=== PATIENT | female | born 1995 | race Caucasian/White ===

== ENCOUNTER 2024-06-18 02:21 | Emergency (ER) | payer MEDICAID, SELFPAY ==
[2024-06-18 02:29] VITALS: BP 119/76; PULSE 111; RESP 16; TEMP 36.6; O2SAT 100; BMI 26.4
[2024-06-18 02:42] LABS: MANUAL DIFF FLAG NO
[2024-06-18 02:43] LABS: Basophils Percent Auto 0.2 % (0-2); Eosinophils Absolute Auto 0.1 X10*3/uL (0.0-0.4); Eosinophils Percent Auto 0.6 % (0-4); Hematocrit 38.5 % (37.0-47.0); Hemoglobin 13.2 g/dl (12.0-16.0); Imm Gran Abs Auto 0.02 X10*3/uL (0.00-0.03); Imm Gran Pct Auto 0.2 % (0.0-0.4); Lymphocytes Absolute Auto 0.7 X10*3/uL (1.2-4.9); Lymphocytes Percent Auto 6.5 % (20-40); Mean Corpuscular HGB Conc 34.3 g/dl (31.0-35.0); Mean Corpuscular Hemoglobin 28.3 pg (27.0-33.0); Mean Corpuscular Volume 82.6 fL (80.0-98.0); Mean Platelet Volume 9.2 fL (9.4-12.3); Monocytes Absolute Auto 0.6 X10*3/uL (0.1-1.2); Monocytes Percent Auto 5.4 % (2-11); Neutrophils Percent Auto 87.1 % (45-73); Platelet Count 297 X10*3/uL (160-400); Red Blood Count 4.66 X10*6/uL (4.20-5.50); White Blood Count 10.3 X10*3/uL (4.8-10.8)
[2024-06-18 03:02] LABS: Alanine Aminotransferase 17 U/L (0-31); Albumin Level 4.7 g/dL (3.5-5.0); Anion Gap 15 (12-20); Aspartate Amino Transferase 25 U/L (5-31); Bilirubin Total 0.4 mg/dL (0.0-1.0); Blood Urea Nitrogen 13 mg/dL (9-16); Calcium 9.6 mg/dL (8.4-10.2); Carbon Dioxide 22 mmol/L (22-29); Chloride 103 mmol/L (96-108); Creatinine Clr Calc Pharmacy 83.8; Estimated Glomerular Filt Rate > 60; Glucose Random 117 mg/dL (60-115); Lipase 20 U/L (8-78); Potassium 3.4 mmol/L (3.3-5.1); Sodium 137 mmol/L (135-145); Total Protein 7.9 g/dL (6.5-8.0)
[2024-06-18] MEDS: ondansetron HCL 4 MG/2 ML VIAL IVPUSH (03:10)
[2024-06-18] MEDS: Ketorolac Tromethamine 15 MG/ML VIAL IVPUSH (03:11)
--- NOTE | 2024-06-18 03:11 | ED.NAVMDI ---
HPI - Nausea/Vomiting/Diarrhea General Chief complaint: Nausea/Vomiting/Diarrhea Stated complaint: Vomiting, weakness Time Seen by Provider: 06/18/24 02:52 Source: patient Mode of arrival: ambulatory Limitations: no limitations History of Present Illness ED Provider: ADY TELLEZ Narrative: 29 yo female with no sig PMH ate a burrito on Monday night around 4pm then later on developed diarrhea non bloody and abd cramps. Her partner had diarrhea too. She has had diarrhea since then - denies travel/abx exposure. She then notes she started to vomit tonight. No fevers, she notes she feels ill. Feels her HR has been high. MD elicited complaint: nausea, vomiting, diarrhea and abdominal pain Onset (ago): day(s) (Monday) Description of vomiting: food contents and watery Description of diarrhea: watery Associated nausea: Yes Associated abdominal pain: Yes Location of pain: diffuse Radiation: diffuse Pain consistency: intermittent Severity: moderate Quality: cramping Exacerbating factors: eating and movement Relieving factors: none Context: possible food poisoning Associated symptoms: loss of appetite, malaise, nausea/vomiting and weakness Related Data Previous Rx's ?Medication ?Instructions ?Recorded ondansetron 4 mg disintegrating 4 mg PO Q8H PRN nausea and 06/18/24 tablet vomiting #20 tabs Allergies Allergy/AdvReac Type Severity Reaction Status Date / Time amoxicillin Allergy Rash Verified 06/18/24 02:32 Sulfa (Sulfonamide Allergy Rash Verified 06/18/24 02:32 Antibiotics) Review of Systems Review of Systems: Constitutional : No Weight loss, No Fever, No Chills ENT/Mouth : No sore throat, No Rhinorrhea Eyes: No Swelling, No Redness Cardiovascular : No Chest Pain, No SOB, NoEdema Respiratory : No Cough, No Sputum, No Wheezing Gastrointestinal : Positive Nausea, Positive Vomiting, positive Diarrhea, positive abdominal Pain, No Hematochezia, No Melena Genitourinary : No Dysuria, No Urinary Frequency, No Hematuria, No Urgency Musculoskeletal : No joint pain, No Myalgias, No Joint Swelling Skin : No Skin Lesions, No rash Neuro : No Weakness, No Numbness, No Dizziness, No Headache Psych : No Anxiety/Panic, No Depression Heme/Lymph: No Bruising, No Lymphadenopathy Endocrine : No Polyuria, No Polydipsia All other systems reviewed and are negative. Gastrointestinal: Gastrointestinal: Reports nausea PMFSH Past Medical History Attestation statement: The following information was validated with the patient. Source: old records reviewed Medical History (Updated 06/18/24 @ 03:19 by Keli Matt DO) No pertinent past medical history Social History Social History (Updated 06/18/24 @ 03:12 by Keli Matt DO) Patient Tobacco Use Status: Never used Tobacco Do you have a plan to hurt others: No Plan Physical Exam Vital Signs: Vital Signs: Last Vital Signs Temp 97.9 F 06/18/24 04:00 Pulse 89 06/18/24 04:00 Resp 18 06/18/24 04:00 BP 107/62 06/18/24 04:00 Pulse Ox 100 06/18/24 04:00 O2 Del Method Room Air 06/18/24 04:00 BMI result Body Mass Index 26.4 Appearance: Alert. Oriented X3. No acute distress. Eyes: Pupils equal, round and reactive to light. ENT: Pharynx normal. Neck: Normal inspection. Neck supple. CVS: Normal heart rate and rhythm. Pulses normal. Respiratory: No respiratory distress. Breath sounds normal. Abdomen: Soft and mild epigastric ttp no rebound or guarding Skin: Skin warm and dry. Normal skin color. Normal skin turgor. Extremities: No lower extremity edema. No calf ttp Neuro: Oriented X 3. No motor deficit. No sensory deficit. Course Course Course Narrative: urine in contaminated no urinary symptoms repeat next week Reevaluation(s) Reevaluation #1: asked me to check L breast for possible lump that fluctuates with her cycle - Rachel RN presents I did not feel mass. She has had neg US before. Discussed her to follow up with PCP Medications Administered Discontinued Medications Generic Name Dose Route Start Last Admin Trade Name Freq PRN Reason Stop Dose Admin Famotidine 20 mg 06/18/24 02:53 06/18/24 03:12 Famotidine/Pf 20 Mg/2 Ml Vial IVPUSH 06/18/24 02:54 20 mg ONCE ONE Administration Lactated Ringer's 1,000 mls @ 999 mls/hr 06/18/24 02:53 06/18/24 04:26 Lr IV 06/18/24 03:53 Infused .Q1H1M ONE Infusion Ketorolac Tromethamine 15 mg 06/18/24 02:53 06/18/24 03:11 Ketorolac Tromethamine 15 Mg/Ml Vial IVPUSH 06/18/24 02:54 15 mg ONCE ONE Administration Ondansetron HCl 4 mg 06/18/24 02:53 06/18/24 03:10 Ondansetron Hcl 4 Mg/2 Ml Vial IVPUSH 06/18/24 02:54 4 mg ONCE ONE Administration Medical Decision Making Medical Decision Making [facility] Narrative: 29 yo female not toxic no sig PMH here with c/o diarrhea and cramps since eating a burrito on Monday now with n/v her pain is not localized she has no fevers, no bloody stools and she is immunocompetent. At this time basic labs, IVF, toradol/zofran. Reassess and PO challenge. No localized pain to suggest appy or GB pathology. Differential Diagnosis Differential Diagnoses: The differential diagnosis associated with the presentation includes dehydration, viral syndrome, food toxicity Admission/Observation Consideration of admission/observation: Escalation of care including admission/observation considered tolerating PO feels much better stable for DC Lab Data [facility] Lab Attestation statement: I reviewed the patient's lab results. 06/18/24 02:37 06/18/24 02:37 Labs: Lab Results 06/18/24 06/18/24 Range/Units 02:37 04:19 WBC 10.3 (4.8-10.8) X10*3/uL RBC 4.66 (4.20-5.50) X10*6/uL Hgb 13.2 (12.0-16.0) g/dl Hct 38.5 (37.0-47.0) % MCV 82.6 (80.0-98.0) fL MCH 28.3 (27.0-33.0) pg MCHC 34.3 (31.0-35.0) g/dl RDW 13.0 (11.0-16.0) % Plt Count 297 (160-400) X10*3/uL MPV 9.2 L (9.4-12.3) fL Immature Gran % (Auto) 0.2 (0.0-0.4) % Neut % (Auto) 87.1 H (45-73) % Lymph % (Auto) 6.5 L (20-40) % [place] % (Auto) 5.4 (2-11) % Eos % (Auto) 0.6 (0-4) % Baso % (Auto) 0.2 (0-2) % Lymph # (Auto) 0.7 L (1.2-4.9) X10*3/uL [place] # (Auto) 0.6 (0.1-1.2) X10*3/uL Eos # (Auto) 0.1 (0.0-0.4) X10*3/uL Baso # (Auto) 0.0 (0.0-0.2) X10*3/uL Abs Immat Gran (auto) 0.02 (0.00-0.03) X10*3/uL Absolute Neuts (auto) 9.0 H (2.0-8.3) x10*3/uL Absolute Nucleated RBC 0.000 (0.0-0.012) X10*3/uL Nucleated RBC % (auto) 0.0 (0.0-0.2) /100WBC Sodium 137 (135-145) mmol/L Potassium 3.4 (3.3-5.1) mmol/L Chloride 103 (96-108) mmol/L Carbon Dioxide 22 (22-29) mmol/L Anion Gap 15 (12-20) BUN 13 (9-16) mg/dL Creatinine 0.86 (0.5-1.4) mg/dL Estim Creat Clear Calc 83.8 Estimated GFR > 60 Random Glucose 117 H (60-115) mg/dL Calcium 9.6 (8.4-10.2) mg/dL Total Bilirubin 0.4 (0.0-1.0) mg/dL AST 25 (5-31) U/L ALT 17 (0-31) U/L Alkaline Phosphatase 95 (39-117) U/L Total Protein 7.9 (6.5-8.0) g/dL Albumin 4.7 (3.5-5.0) g/dL Lipase 20 (8-78) U/L Urine Color Dark Yellow Urine Appearance Cloudy Urine pH 5.5 (5.0-9.0) Ur Specific [place] >= 1.030 H (1.005-1.025) Urine Protein 30 (1+) H (Neg-Trace) mg/dL Urine Glucose (UA) Negative (Negative) mg/dL Urine Ketones 40 (Negative) mg/dL Urine Blood Moderate (2+) H (Negative) Urine Nitrite Negative (Negative) Ur Leukocyte Esterase Trace H (Negative) Urine RBC >20 H (0-2) /HPF Urine WBC 11-20 H (0-5) /HPF Ur Squamous Epith Cells 11-20 (0-2) /HPF Urine Bacteria 1+ (None Seen) Hyaline Casts 0-2 (0-2) /LPF Urine Test NEGATIVE (NEGATIVE) Independent Historian Clinical information obtained from an independent historian. History obtained from or confirmed by: Spouse Prescription Management I considered prescription management with: Other Discharge Plan Discharge Clinical Impression: Acute diarrhea, Nausea & vomiting Patient Disposition: Home, Self-Care Instructions: Acute Nausea and Vomiting (ED), Acute Diarrhea (ED) Additional Instructions: stay hydrated, labs reassuring return for any worsening symptoms or concerns bland diet for 24 to 48 hours advance slowly some blood in urine repeat next week to make sure it is resolved Prescriptions: New ondansetron 4 mg tablet,disintegrating 4 mg PO Q8H PRN (Reason: nausea and vomiting) Qty: 20 0RF Stand Alone Forms: Work/School Release
[2024-06-18] MEDS: Famotidine/PF 20 MG/2 ML VIAL IVPUSH (03:12)
[2024-06-18 03:13] LABS: Alkaline Phosphatase 95 U/L (39-117)
[2024-06-18] MEDS: Lactated Ringers 1,000 ML 999 ML IV (03:13)
--- NOTE | 2024-06-18 03:51 | PC.NURSE ---
Pt tolerating PO well without issue or concern. OOB to bathroom, walks with a steady gait.
[2024-06-18 04:00] VITALS: BP 107/62; PULSE 89; RESP 18; TEMP 36.6; O2SAT 100
[2024-06-18 04:28] LABS: UPreg QC Valid YES; Urine Pregnancy NEGATIVE (NEGATIVE)
[2024-06-18 04:30] LABS: Appearance Urine Cloudy; Color Urine Dark Yellow; Glucose Urine UA Negative (Negative); Leukocyte Esterase Urine Trace (Negative); Nitrite Urine Negative (Negative); PH 5.5 (5.0-9.0); Specific Gravity - Urine >= 1.030 (1.005-1.025); UMIC TRIGGER UACC YES; Urine Blood Moderate (2+) (Negative); Urine Ketones 40 mg/dL (Negative); Urine Protein 30 (1+) mg/dL (Neg-Trace)
[2024-06-18 04:33] LABS: Bacteria Urine 1+ (None Seen); Hyaline Casts Urine 0-2 /LPF (0-2); RBC Urine >20 /HPF (0-2); UACC Culture Trigger YES
--- OUTSIDE RECORDS SUMMARY | 2024-06-18 04:45 | XMS_ITS | Continuity of Care Document ---
Author Organization [facility] ter Address [address] [place] [id number]- Care Team Providers Care Traffic Law Attorney Name Role Phone Omar Vargas MD Primary Care Physician [phone] [place] [facility] [place] - 03/05/[address] [id number] Discharge Disposition: A-D/C Home Attending Physician: Omar Vargas MD Admitting Physician: Omar Vargas MD Referring Physician: Omar Vargas MD Allergies, Adverse Reactions, Alerts Substance Reaction Severity Status amoxicillin 1 rash on back Active sulfADIAZINE hives Active sulfa drugs hives Active Latex rash Unknown Active 1rash Medications acetaminophen 325 mg oral capsule 2 capsule = 650 mg, By Mouth, Every 4 hours, PRN as needed for pain, # 50 capsule, 0 Refills, Maintenance, 03/05/21 6:39:00 EDT, Capsule, [facility] #[id number], Partial fill upon patient request if the prescription is for a schedule II opioid dr... Start Date: 03/05/21 Status: Ordered docusate sodium 100 mg oral tablet 1 tablet = 100 mg, By Mouth, 2 times a day, PRN for constipation, # 60 tablet, 0 Refills, Maintenance, 03/05/21 6:39:00 EDT, Tablet, [facility] #[id number], Partial fill upon patient request if the prescription is for a schedule II opioid drug.,... Start Date: 03/05/21 Status: Ordered ibuprofen 600 mg oral tablet 600 mg, 1, tablet, By Mouth, Every 8 hours, # 30 tablet, Refills 0, Tot. Refills 0, Maintenance, 05/05/20 16:53:00 EDT, Route to Pharmacy Electronically, [facility] #[id number], 154.94, cm, 05/09/19 9:37:00 EDT, Height, 56.7, kg, 05/09/19 9:37:00... Start Date: 05/05/20 Status: Ordered ibuprofen 800 mg oral tablet 800 mg, 1, tablet, By Mouth, Every 8 hours, # 50 tablet, Refills 0, Tot. Refills 0, Maintenance, 03/05/21 6:39:00 EDT, Route to Pharmacy Electronically, [facility] #[id number], Partial fill uponpatient request if the prescription is for a schedu... Start Date: 03/05/21 Status: Ordered oxyCODONE 5 mg oral tablet 5 mg, 1, tablet, By Mouth, Every 6 hours, PRN, # 7 tablet, Refills 0, Tot. Refills 0, Maintenance, as needed for pain, 03/05/21 6:40:00 EDT, Route to Pharmacy Electronically, [facility] #[id number], 156, cm, 03/05/21 1:17:00 EDT, Height, 80.7, kg... Start Date: 03/05/21 Status: Ordered OxyCODONE IR Tablet 5 mg, Tablet, By Mouth, Every 3 hours, PRN for Pain , Severe, (7-10), Routine, 03/03/21 5:39:00 EDT Start Date: 03/03/21 Stop Date: 03/05/21 Status: Discontinued Multivitamins with Vitamin B Complex, Vitamin C, Minerals and L- Methylfolate oral capsule 1 capsule, By Mouth, Daily, # 90 capsule, 0 Refills, Maintenance, 07/22/20 0:07:00 EST, Capsule, [facility] #[id number], Partial fill upon patient request if the prescription is for a schedule II opioid drug., 1 capsule By Mouth Daily,x90 days, 1... Start Date: 07/22/20 Stop Date: 10/20/20 Status: Ordered simethicone 80 mg oral tablet 1 tablet = 80 mg, By Mouth, 3 times a day after meals, PRN Gas, # 48 tablet, 0 Refills, Maintenance, 03/05/21 6:39:00 EDT, [facility][id number], Partial fill upon patient request if the prescription is for a schedule II opioid drug., 156, cm, 0... Start Date: 03/05/21 Status: Ordered Vitamin D3 400 intl units oral capsule 1 capsule = 400 International_Units, By Mouth, Daily, # 30 capsule, 0 Refills, Maintenance, 03/30/19 14:50:00 EDT Start Date: 03/30/19 Status: Ordered Problem List Condition Effective Dates Status Health Status Inform ant Chlamydia(Confirmed) Active Depressive disorder(Confirmed) Active Kidney stones(Confirmed) Active Pelviectasis(Confirmed) Active Procedures Procedure Date Related Diagnosis Body Site Status delivery only; 03/02/21 C ompleted Vital Signs Most recent to oldest [Reference Range]: 1 2 3 Height 156 cm (03/05/21 9:38 AM) 156 cm (03/05/21 12:00 AM) 156 cm (03/04/21 9:50 AM) Weight 80.7 kg (03/01/21 6:14 AM) 80.7 kg (03/01/21 4:53 AM) 80.7 kg (03/01/21 1:22 AM) Oxygen Saturation [94-100 %] 99 % (03/05/21 12:00 AM) 100 % (03/04/21 12:10 AM) 93 % *L* (03/02/21 7:00 AM) Pulse Rate [55-90 bpm] 83 bpm (03/05/21 9:38 AM) 81 bpm (03/05/21 12:00 AM) 80 bpm (03/04/21 3:55 PM) Body Mass Index [18.5-24.99] 33.16 *>HHI* (03/01/21 4:53 AM) Blood Pressure [90-138/55-84 mm Hg] 141/81mm Hg *H* (03/05/21 9:38 AM) 118/77mm Hg (03/05/21 12:00 AM) 130/75mm Hg (03/04/21 3:55 PM) Respiratory Rate [16-30 br/min] 18 br/min (03/05/21 9:38 AM) 18 br/min (03/05/21 12:00 AM) 17 br/min (03/04/21 11:27 PM) Temperature [96.8-100.4 DegF] 97.9 DegF (03/05/21 9:38 AM) 98.1 DegF (03/05/21 12:00 AM) 98.5 DegF (03/04/21 3:55 PM) Mode of Delivery (Oxygen) Room air (03/05/21 12:00 AM) Room air (03/04/21 12:10 AM) Room air (03/02/21 6:00 AM) Blood pressure sites Arm, left (03/05/21 9:38 AM) Arm, left (03/04/21 3:55 PM) Arm, right (03/03/21 5:44 PM) Temperature Route Oral (03/05/21 9:38 AM) Oral (03/05/21 12:00 AM) Oral (03/04/21 3:55 PM) Dry Weight 80.7 kg (03/01/21 4:53 AM) 80.7 kg (03/01/21 1:22 AM) Weight Obtained Via Standing scale (03/01/21 1:22 AM) Dry Weight Obtained Via Standing scale (03/01/21 1:22 AM) Social History Social History Type Response Smoking Status Never smoker entered on: 10/04/17 Sex
--- OUTSIDE RECORDS SUMMARY | 2024-06-18 04:45 | XMS_ITS | Continuity of Care Document ---
Author Organization [facility] ter Address [address] [place] [id number]- Care Team Providers Care Technical Services Rep Name Role Phone Omar Vargas MD Primary Care Physician [phone] [place] [facility] [place] 02/24/21 - 02/24/[address] [id number] Discharge Disposition: A-D/C Home Attending Physician: Omar Vargas MD Admitting Physician: Omar Vargas MD Referring Physician: Omar Vargas MD Allergies, Adverse Reactions, Alerts Substance Reaction Severity Status amoxicillin 1 rash on back Active sulfADIAZINE hives Active sulfa drugs hives Active Latex rash Unknown Active 1rash Medications ibuprofen 600 mg oral tablet 600 mg, 1, tablet, By Mouth, Every 8 hours, # 30 tablet, Refills 0, Tot. Refills 0, Maintenance, 05/05/20 16:53:00 EDT, Route to Pharmacy Electronically, [facility] #[id number], 154.94, cm, 05/09/19 9:37:00 EDT, Height, 56.7, kg, 05/09/19 9:37:00... Start Date: 05/05/20 Status: Ordered ondansetron 4 mg oral disintegrating strip 1 each = 4 mg, By Mouth, Every 8 hours, PRN Nausea & Vomiting, # 12 strip(s), 0 Refills, Maintenance, 03/30/19 13:38:18 EDT Start Date: 03/30/19 Status: Ordered Multivitamins with Vitamin B Complex, Vitamin C, Minerals and L- Methylfolate oral capsule 1 capsule, By Mouth, Daily, # 90 capsule, 0 Refills, Maintenance, 07/22/20 0:07:00 EST, Capsule, [facility] #[id number], Partial fill upon patient request if the prescription is for a schedule II opioid drug., 1 capsule By Mouth Daily,x90 days, 1... Start Date: 07/22/20 Stop Date: 10/20/20 Status: Ordered Vitamin D3 400 intl units oral capsule 1 capsule = 400 International_Units, By Mouth, Daily, # 30 capsule, 0 Refills, Maintenance, 03/30/19 14:50:00 EDT Start Date: 03/30/19 Status: Ordered Problem List Condition Effective Dates Status Health Status Inform ant Depressive disorder(Confirmed) Active H/O: depression(Confirmed) 1 02/24/21 Active Kidney stones(Confirmed) Active Pelviectasis(Confirmed) Active 1Problem added by Discern Expert Vital Signs Most recent to oldest [Reference Range]: 1 Weight 79.2 kg (02/24/21 1:32 PM) Oxygen Saturation [94-100 %] 99 % (02/24/21 2:10 PM) Pulse Rate [55-90 bpm] 74 bpm (02/24/21 2:10 PM) Blood Pressure [90-138/55-84 mm Hg] 112/ 64mm Hg (02/24/21 2:10 PM) Respiratory Rate [16-30 br/min] 18 br/mi n (02/24/21 2:10 PM) Temperature [96.8-100.4 DegF] 98.5 DegF (02/24/21 2:10 PM) Mode of Delivery (Oxygen) Room air (02/24/21 2:10 PM) Blood pressure sites Arm, right (02/24/21 2:10 PM) Temperature Route Oral (02/24/21 2:10 PM) Dry Weight 79.2 kg (02/24/21 1:32 PM) Weight Obtained Via Standing scale (02/24/21 1:32 PM) Dry Weight Obtained Via Standing scale (02/24/21 1:32 PM) Social History Social History Type Response Smoking Status Never smoker entered on: 10/04/17 Sex
--- OUTSIDE RECORDS SUMMARY | 2024-06-18 04:45 | XMS_ITS | Continuity of Care Document ---
Author Organization [facility] Address [address] [place] [address]- Care Team Providers Care Survey Supervisor Name Role Phone Not on Staff, PCP Primary Care Physician Unavail able Encounter [facility] Date(s): 09/23/20 - 10/23/[facility] [address] [place] [id number] Attending Physician: Ольга Pope Admitting Physician: Admtr, Ольга Referring Physician: Admtr, Ar8 Allergies, Adverse Reactions, Alerts Substance Reaction Severity Status amoxicillin 1 rash on back Active sulfADIAZINE hives Active sulfa drugs hives Active Latex rash Unknown Active 1rash Medications ibuprofen 600 mg oral tablet 600 mg, 1, tablet, By Mouth, Every 8 hours, # 30 tablet, Refills 0, Tot. Refills 0, Maintenance, 05/05/20 16:53:00 EDT, Route to Pharmacy Electronically, [facility] #[id number], 154.94, cm, 05/09/19 9:37:00 EDT, Height, 56.7, [...] 0 Refills, Maintenance, 07/22/20 0:07:00 EST, Capsule, [facility] #[id number], Partial fill upon patient request if the prescription is for a schedule II opioid drug., 1 capsule By Mouth Daily,x90 days, 1... Start Date: 07/22/20 Stop Date: 10/20/20 Status: Ordered pyridoxine 25 mg oral tablet 0.5 tablet = 12.5 mg, By Mouth, 3 times a day, PRN Nausea & Vomiting, for 14 days, # 30 tablet,8 Refills, Acute 11/25/20 0:07:00 EDT, 07/22/20 0:07:00 EST, Tablet, [facility] #[id number], Partial fill upon patient request if the prescription is... Start Date: 07/22/20 Stop Date: 11/25/20 Status: Ordered Vitamin D3 400 intl units oral capsule 1 capsule = 400 International_Units, By Mouth, Daily, # 30 capsule, 0 Refills, Maintenance, 03/30/19 14:50:00 EDT Start Date: 03/30/19 Status: Ordered Social History Social History Type Response Smoking Status Never smoker entered on: 10/04/17 Sex
--- OUTSIDE RECORDS SUMMARY | 2024-06-18 04:45 | XMS_ITS | Continuity of Care Document ---
Author Organization [facility] ter Address [address] [place] [id number]- Care Team Providers Care Electronics Utility Worker Name Role Phone Omar Vargas MD Primary Care Physician Encounter [facility] [place] Date(s): 02/28/21 - 02/28/[address] [id number] Discharge Disposition: A-D/C Home Attending Physician: Omar [...] 05/05/20 16:53:00 EDT, Route to Pharmacy Electronically, [facility] #[id number], 154.94, cm, 05/09/19 9:37:00 EDT, Height, 56.7, [...] 0 Refills, Maintenance, 07/22/20 0:07:00 EST, Capsule, [facility] #[id number], Partial fill upon patient request if the [...] Inform ant Chlamydia(Confirmed) Active Depressive disorder(Confirmed) Active H/O: depression(Confirmed) 1 02/24/21 Active Kidney stones(Confirmed) Active Pelviectasis(Confirmed) Active 1Problem added by Discern Expert Vital Signs Most recent to oldest [Reference Range]: 1 Weight 80.4 kg (02/28/21 8:19 AM) Pulse Rate [55-90 bpm] 86 bpm (02/28/21 8:30 AM) Blood Pressure [90-138/55-84 mm Hg] 105/ 73mm Hg (02/28/21 8:30 AM) Respiratory Rate [16-30 br/min] 18 br/mi n (02/28/21 8:30 AM) Temperature [96.8-100.4 DegF] 98.2 DegF (02/28/21 8:30 AM) Blood pressure sites Arm, right (02/28/21 8:30 AM) Temperature Route Oral (02/28/21 8:30 AM) Dry Weight 80.4 kg (02/28/21 8:19 AM) Weight Obtained Via Standing scale (02/28/21 8:19 AM) Dry Weight Obtained Via Standing scale (02/28/21 8:19 AM) Social History Social History Type Response Smoking Status Never smoker entered on: 10/04/17 Sex
--- OUTSIDE RECORDS SUMMARY | 2024-06-18 04:45 | XMS_ITS | Continuity of Care Document ---
Author Organization [facility] Address [address] [place] [address]- Care Team Providers Care Military Technology Specialist Name Role Phone Not on Staff, PCP Primary Care Physician Unavail able Encounter [facility] Date(s): 04/29/24 - 04/29/[address] [address]- Encounter Diagnosis Ingrown toenail(Final) - 04/29/24 Discharge Disposition: A-D/C Home Attending Physician: Leslie LEDESMA, Mihir Valverde Admitting Physician: Leslie LEDESMA, Mihir Valverde Referring Physician: Not on Staff, Referring MD Allergies, Adverse Reactions, Alerts Substance Reaction Severity Status sulfa drugs hives Active Latex rash Unknown Active amoxicillin 1, 2 Tolerated ceftriaxon e and cefazolin 2018 rash on back Active sulfADIAZINE hives Active 1Tolerated ceftriaxon and cefazolin 2018 2rash Medications ZyrTEC 10 mg oral tablet 1 tablet = 10 mg, By Mouth, Daily, PRN for allergy symptoms, you may take an additional tablet at nighttime if you continue to have itching, # 14 tablet, 0 Refills, Maintenance, 03/26/23 7:32:00 EDT,Tablet, [facility] #[id number], Partial fill u... Start Date: 03/26/23 Stop Date: 04/02/23 Status: Ordered Problem List Condition Confirmation Course Effective Dates Status Health St atus Informant Chlamydia Confirmed Active Depressive disorder Confirmed Active Kidney stones Confirmed Active Pelviectasis Confirmed Active Vital Signs Most recent to oldest [Reference Range]: 1 Height 152 cm (04/29/24 11:22 AM) Weight 64.5 kg (04/29/24 11:22 AM) Oxygen Saturation [94-100 %] 96 % (04/29/24 11:21 AM) Pulse Rate [55-90 bpm] 100 bpm *H* (04/29/24 11:21 AM) Blood Pressure [90-138/55-84 mm Hg] 110/ 62mm Hg (04/29/24 11:22 AM) Respiratory Rate [16-30 br/min] 16 br/mi n (04/29/24 11:22 AM) Temperature [96.8-100.4 DegF] 97.9 DegF (04/29/24 11:22 AM) Mode of Delivery (Oxygen) Room air (04/29/24 11:21 AM) Blood pressure sites Arm, left (04/29/24 11:22 AM) Dry Weight 64.5 kg (04/29/24 11:22 AM) Social History Social History Type Response Smoking Status Never smoker entered on: 10/04/17 Sex Note * Cris Rubio: PERFORM Event Display: Patient Education Leaflets Authored Date: [id number] Ingrown Toenail, Not Infected (Home Treatment) ?? [id number] Ingrown Toenail, Not Infected (Home Treatment) An ingrown toenail occurs when the nail grows sideways into the skin next to the nail. This can cause pain, especially when wearing tight shoes. It can also lead to an infection with redness, swelling, and pus drainage. Most people respond to the treatments described here. But sometimes surgery is needed. The big toe is most often affected.?? The most common cause of an ingrown toenail is trimming your nails wrong. Don't trim the nails too close to the skin and try to round the nail too tightly around the shape of the toe. When you do this, the nail can grow into the skin of your toe.??It's safer to trim the nail ending in a straight line rather than a curve. An ingrown toenail may seem more like an inconvenience than a serious problem. If you have diabetes, poor circulation, or a history of foot ulcers, get medical care at the first sign of an ingrown toenail. It can lead to serious complications. Home care These guidelines will help you care for your toenail at home: ??? Soak the painful toe in warm water 3 to 4 times each day, for 10 to 20 minutes each time. Adding Epsom salt may be advised by your healthcare provider. Then keep it dry. ??? If there's redness or swelling around the toenail, apply anantibiotic ointment 3 times a day. ??? Put a small piece of rolled-up cotton under the corner of the nail. This helps the nail to grow outward, away from the cuticle. ??? Wear shoes that don???t put pressure on the toes, such as a sandal or open shoe. Closed shoes should be big enough in the toes so that there is no pressure on the painful toe. ??? You may use acetaminophen or ibuprofen for pain,unless another pain medicine was prescribed. Talk with your provider before using these medicines if you have chronic liver or kidney disease. Also talk with your provider if you've ever had a stomach ulcer or digestive tract bleeding. ?? Prevention The following tips will help you prevent ingrown toenails: ??? Don't wear pointed, tight, or narrowshoes. ??? Trim toenails once a month so they don???t grow too long. Cut the nail straight across. ?? Follow-up care Follow up with your healthcare provider, or as advised. ?? When to get medical advice Call your healthcare provider right away if any of these occur: ??? Increasing redness, pain, or swelling of the toe ??? Tender red streaks in the skin leading toward the ankle ??? Pus or fluid drainage from the toe ??? Fever of 100.4??F (38??C) or higher, or as advised by your provider ??? The area doesn't heal with home treatment ??? You have an ingrown toenail and a health condition that puts you at high risk for complications. This includes diabetes, poor circulation, or a history of foot ulcers. ?? Last Reviewed Date: 2021 ?? [id number] The [employer]. All rights reserved. This information is not intended as a substitute for professional medical care. Always follow your healthcare professional's instructions. ?? Patient Care team information Care Team Personnel Name: Omar Vargas MD Position: [facility] FUEL CELL BINDER MD Member Role: [employer] FUEL CELL BINDER Physician Name: Not on Staff, PCP Position: [facility] Physician (General Medicine) Member Role: PCP Care Team Related Persons Name: ISABELLA SHIPMAN Address: [employer] Address: home [address] [place] [address] Name: ABBY SHIPMAN Address: home [address] [place] [address] Name: DEVIKA SHIPMAN Address: home [address] [place] [address] Name: GLORIA KNIGHT Address: [place] [address]
--- OUTSIDE RECORDS SUMMARY | 2024-06-18 04:45 | XMS_ITS | Continuity of Care Document ---
Author Organization [facility] Address [address] [place] [address]- Care Team Providers Care Maintenance Service Technician Name Role Phone Omar Vargas MD Primary Care Physician Encounter [facility] Date(s): 03/03/22 - 03/03/[address] [address]- Discharge Disposition: A-D/C Home Attending Physician: William Tatum MD Admitting Physician: William Tatum MD Referring Physician: Not on Staff, Referring MD [...] 0 Refills, Maintenance, 03/05/21 6:39:00 EDT, Capsule, [facility] #[id number], Partial fill upon patient request if the prescription is for a schedule II opioid drMelissa.. Start Date: 03/05/21 Status: Ordered dicyclomine 20 mg oral tablet 1 tablet = 20 mg, By Mouth, 4 times a day, # 56 tablet, 0 Refills, Maintenance, 03/03/22 16:31:00 EDT, Tablet, [facility] #[id number], Partial fill upon patient request if the prescription is for a schedule II opioid drug., 152, cm, 03/03/22 13:2... Start Date: 03/03/22 Stop Date: 03/17/22 Status: Ordered docusate sodium 100 mg oral tablet 1 tablet = 100 mg, By Mouth, 2 times a day, PRN for constipation, # 60 tablet, 0 Refills, Maintenance, 03/05/21 6:39:00 EDT, Tablet, [facility] #[id number], Partial fill upon patient request if the prescription is for a schedule II opioid drug.,... Start Date: 03/05/21 Status: Ordered hyoscyamine 0.125 mg sublingual tablet 1 tablet = 0.125 mg, Sublingual, Every 4 hours, PRN Diarrhea, # 30 tablet, 0 Refills, Maintenance, 03/03/22 21:57:00 EDT, Tablet, [facility] #[id number], Partial fill upon patient request if theprescription is for a schedule II opioid drug., 152... Start Date: 03/03/22 Stop Date: 03/24/22 Status: Ordered ibuprofen 600 mg oral tablet 600 mg, 1, tablet, By Mouth, Every 8 hours, # 30 tablet, Refills 0, Tot. Refills 0, Maintenance, 05/05/20 16:53:00 EDT, Route to Pharmacy Electronically, [email or web address] #[id number], 154.94, cm, 05/09/19 9:37:00 EDT, Height, 56.7, kg, 05/09/19 9:37:00... Start Date: 05/05/20 Status: Ordered ibuprofen 800 mg oral tablet 800 mg, 1, tablet, By Mouth, Every 8 hours, # 50 tablet, Refills 0, Tot. Refills 0, Maintenance, 03/05/21 6:39:00 EDT, Route to Pharmacy Electronically, [email or web address] #[id number], Partial fill uponpatient request if the prescription is for a schedu... Start Date: 03/05/21 Status: Ordered oxyCODONE 5 mg oral tablet 5 mg, 1, tablet, By Mouth, Every 6 hours, PRN, # 7 tablet, Refills 0, Tot. Refills 0, Maintenance, as needed for pain, 03/05/21 6:40:00 EDT, Route to Pharmacy Electronically, [facility] #[id number], 156, cm, 03/05/21 1:17:00 EDT, Height, 80.7, kg... Start Date: 03/05/21 Status: Ordered Multivitamins with Vitamin B Complex, Vitamin C, Minerals and L- Methylfolate oral capsule 1 capsule, By Mouth, Daily, # 90 capsule, 0 Refills, Maintenance, 07/22/20 0:07:00 EST, Capsule, [facility] #[id number], Partial fill upon patient request if the prescription is for a schedule II opioid drug., 1 capsule By Mouth Daily,x90 days, 1... Start Date: 07/22/20 Stop Date: 10/20/20 Status: Ordered simethicone 80 mg oral tablet 1 tablet = 80 mg, By Mouth, 3 times a day after meals, PRN Gas, # 48 tablet, 0 Refills, Maintenance, 03/05/21 6:39:00 EDT, [facility] #[id number], Partial fill upon patient request if the [...] disorder(Confirmed) Active Kidney stones(Confirmed) Active Pelviectasis(Confirmed) Active Vital Signs Most recent to oldest [Reference Range]: 1 2 Height 152 cm (03/03/22 1:21 PM) 152 cm (03/03/22 1:15 PM) Weight 59.6 kg (03/03/22 1:21 PM) 59.6 kg (03/03/22 1:15 PM) Oxygen Saturation [94-100 %] 100 % (03/03/22 3:11 PM) 100 % (03/03/22 1:15 PM) Pulse Rate [55-90 bpm] 91 bpm *H* (03/03/22 3:11 PM) 90 bpm (03/03/22 1:15 PM) Body Mass Index [18.5-24.99] 25.8 *H* (03/03/22 1:15 PM) Blood Pressure [90-138/55-84 mm Hg] 121/ 65mm Hg (03/03/22 3:11 PM) 116/78mm Hg (03/03/22 1:15 PM) Respiratory Rate [16-30 br/min] 18 br/mi n (03/03/22 3:11 PM) 18 br/min (03/03/22 1:15 PM) Temperature [96.8-100.4 DegF] 97 DegF (03/03/22 3:11 PM) 98 DegF (03/03/22 1:15 PM) Dry Weight 59.6 kg (03/03/22 1:21 PM) 59.6 kg (03/03/22 1:15 PM) Social History Social History Type Response Smoking Status Never smoker entered on: 10/04/17 Sex
--- OUTSIDE RECORDS SUMMARY | 2024-06-18 04:45 | XMS_ITS | Continuity of Care Document ---
Author Organization [facility] Address [address] [place] [address]- Care Team Providers Care Dovetail Machine Operator Name Role Phone William Irby Primary Care Physician Encounter [facility] Date(s): 03/25/23 - 03/25/[address] [address]- Discharge Disposition: A-D/C Home Attending Physician: Jared Young DO Admitting Physician: Jared Young DO Referring Physician: Not on Staff, Referring MD Allergies, Adverse Reactions, Alerts Substance Reaction Severity Status amoxicillin 1 rash on back Active Latex rash Unknown Active sulfADIAZINE hives Active sulfa drugs hives Active 1rash Medications predniSONE 20 mg oral tablet 2 tablet = 40 mg, By Mouth, Daily, for 5 days, # 10 tablet, 0 Refills, Acute 03/30/23 4:49:00 EDT, 03/25/23 4:49:00 EDT, Tablet, [facility] #[id number], Partial fill upon patient request if the prescription is for a schedule II opioid drug., 154.... Start Date: 03/25/23 Stop Date: 03/30/23 Status: Ordered Problem List Condition Confirmation Course Effective Dates Status Health St [facility] Informant Chlamydia Confirmed Active Depressive disorder Confirmed Active Kidney stones Confirmed Active Pelviectasis Confirmed Active Vital Signs Most recent to oldest [Reference Range]: 1 Height 154.94 cm (03/25/23 4:31 AM) Weight 67.6 kg (03/25/23 4:31 AM) Oxygen Saturation [94-100 %] 100 % (03/25/23 4:31 AM) Pulse Rate [55-90 bpm] 84 bpm (03/25/23 4:31 AM) Blood Pressure [90-138/55-84 mm Hg] 118/ 66mm Hg (03/25/23 4:31 AM) Respiratory Rate [16-30 br/min] 18 br/mi n (03/25/23 4:31 AM) Temperature [96.8-100.4 DegF] 97.2 DegF (03/25/23 4:31 AM) Mode of Delivery (Oxygen) Room air (03/25/23 4:31 AM) Blood pressure sites Arm, right (03/25/23 4:31 AM) Temperature Route Temporal (03/25/23 4:31 AM) Dry Weight 67.6 kg (03/25/23 4:31 AM) Weight Obtained Via Standing scale (03/25/23 4:31 AM) Dry Weight Obtained Via Standing scale (03/25/23 4:31 AM) Social History Social History Type Response Smoking Status Never smoker entered on: 10/04/17 Sex Patient Care team information Care Team Personnel Name: William Irby Position: [facility] Outreach Member Role: PCP Address: Address: [address] [place] [phone]- Name: Sam LEDESMA, Omar Barajas Position: [facility] AUTOMATIC SPLICING MACHINE OPERATOR MD Member Role: [employer] AUTOMATIC SPLICING MACHINE OPERATOR Physician Address: Address: [address] [place] [id number]- Name: Nunu Clemons Position: [facility] ED OA Name: Fernanda Reynoso RN Position: [facility] ED RN W/OE and Tasks Member Role: Patient Care Provider Name: Jared Young DO Position: [facility] ED Medicine MD Member Role: Admitting Physician Address: Address: [address] [place] [address] [place] [address]- Care Team Related Persons Name: ISABELLA SHIPMAN Address: [employer] Address: home [address] [place] [address] [place] Name: ABBY SHIPMAN Address: [address] [place] [address] Name: DEVIKA SHIPMAN Address: home [address] [place] [address] Name: GLORIA KNIGHT Address: [address] [place] [address]
--- OUTSIDE RECORDS SUMMARY | 2024-06-18 04:45 | XMS_ITS | Continuity of Care Document ---
Author Organization [facility] Address [address] [place] [address]- Care Team Providers Care Traffic Engineering Director Name Role Phone Omar Vargas MD Primary Care Physician Encounter [facility] Date(s): 11/13/22 - 11/13/[address] [address]- Discharge Disposition: A-D/C Home Attending Physician: Jared Young DO Admitting Physician: Jared Young DO Referring Physician: Not on Staff, Referring MD Allergies, Adverse Reactions, Alerts Substance Reaction Severity Status amoxicillin 1 rash on back Active sulfADIAZINE hives Active sulfa drugs hives Active Latex rash Unknown Active 1rash Medications Acetaminophen Tablet 975 mg, Tablet, By Mouth, Once, STAT, 11/13/22 3:41:00 EDT, Stop date 11/13/22 3:41:00 EDT Start Date: 11/13/22 Stop Date: 11/13/22 Status: Completed cefpodoxime 200 mg oral tablet 1 tablet = 200 mg, By Mouth, Every 12 hours, for 7 days, # 14 tablet, 0 Refills, Acute 11/20/22 3:41:00 EDT, 11/13/22 3:41:00 EDT, Tablet, [facility] #[id number], Partial fill upon patient request if the prescription is for a schedule II opioid d... Start Date: 11/13/22 Stop Date: 11/20/22 Status: Ordered cefpodoxime 200 mg oral tablet 1 tablet = 200 mg, By Mouth, Every 12 hours, for 7 days, # 14 tablet, 0 Refills, Acute 11/20/22 4:50:00 EDT, 11/13/22 4:50:00 EDT, Tablet, [facility] #[id number], Partial fill upon patient request if the prescription is for a schedule II opioid d... Start Date: 11/13/22 Stop Date: 11/20/22 Status: Ordered Motrin Tablet 600 mg, Tablet, By Mouth, Once, STAT, 11/13/22 3:41:00 EDT, Stop date 11/13/22 3:41:00 EDT Start Date: 11/13/22 Stop Date: 11/13/22 Status: Completed Problem List Condition Confirmation Course Effective Dates Status Health St [facility] Informant Chlamydia Confirmed Active Depressive disorder Confirmed Active Kidney stones Confirmed Active Pelviectasis Confirmed Active Vital Signs Most recent to oldest [Reference Range]: 1 2 3 Height 163 cm (11/13/22 3:10 AM) Weight 65.6 kg (11/13/22 3:10 AM) Oxygen Saturation [94-100 %] 98 % (11/13/22 3:52 AM) 100 % (11/13/22 3:10 AM) Pulse Rate [55-90 bpm] 81 bpm (11/13/22 3:52 AM) 79 bpm (11/13/22 3:10 AM) Blood Pressure [90-138/55-84 mm Hg] 113/72mm Hg (11/13/22 3:52 AM) 125/82mm Hg (11/13/22 3:10 AM) Respiratory Rate [16-30 br/min] 16 br/min (11/13/22 3:53 AM) 16 br/min (11/13/22 3:52 AM) 16 br/min (11/13/22 3:52 AM) Temperature [96.8-100.4 DegF] 99 DegF (11/13/22 3:10 AM) Mode of Delivery (Oxygen) Room air (11/13/22 3:52 AM) Room air (11/13/22 3:10 AM) Blood pressure sites Arm, right (11/13/22 3:52 AM) Arm, left (11/13/22 3:10 AM) Temperature Route Oral (11/13/22 3:10 AM) Dry Weight 65.6 kg (11/13/22 3:10 AM) Weight Obtained Via Standing scale (11/13/22 3:10 AM) Dry Weight Obtained Via Standing scale (11/13/22 3:10 AM) Social History Social History Type Response Smoking Status Never smoker entered on: 10/04/17 Sex Patient Care team information Care Team Personnel Name: Sam LEDESMA, Omar Barajas Position: [facility] SOFTWARE RELEASE MANAGER MD Member Role: PCP Address: Address: [address] [place] [id number]- [place] Name: Quita Correa RN Position: [facility] ED RN W/OE and Tasks Member Role: Patient Care Provider Name: Jared Young DO Position: [facility] ED Medicine MD Member Role: Admitting Physician Address: Address: [address] [place] [address] [place] [address]- Care Team Related Persons Name: ISABELLA SHIPMAN Address: [employer] Address: home [address] [place] [address] [place] Name: ABBY SHIPMAN Address: home [address] [place] [address] Name: DEVIKA SHIPMAN Address: home [address] [place] [address] Name: GLORIA KNIGHT Address: home [address] [place] [address]
--- OUTSIDE RECORDS SUMMARY | 2024-06-18 04:45 | XMS_ITS | Continuity of Care Document ---
Author Organization [facility] ter Address [address] [place] [address]- Care Team Providers Care Stone Setter Metal Optical Frames Name Role Phone William Irby Primary Care Physician [phone] [facility] [place]/26/23 - 03/26/[address] [address]- Discharge Disposition: A-D/C Home Attending Physician: Veto Gay MD Admitting Physician: Veto Gay MD Referring Physician: Not on Staff, Referring MD Allergies, Adverse Reactions, Alerts Substance Reaction Severity Status amoxicillin 1, 2 Tolerated ceftriaxon e and cefazolin 2018 rash on back Active sulfADIAZINE hives Active Latex rash Unknown Active sulfa drugs hives Active 1Tolerated ceftriaxon and cefazolin 2018 2rash Medications cephalexin monohydrate 500 mg oral capsule 1 capsule = 500 mg, By Mouth, 4 times a day, for 7 days, # 28 capsule, 0 Refills, Acute 04/02/23 7:32:00 EDT, 03/26/23 7:32:00 EDT, Capsule, [facility] #[id number], Partial fill upon patient request if the prescription is for a schedule II opioid... Start Date: 03/26/23 Stop Date: 04/02/23 Status: Ordered ibuprofen 600 mg oral tablet 600 mg, 1, tablet, By Mouth, 4 times a day, PRN, for 5 days, # 20 tablet, Refills 0, Tot. Refills 0, Acute 03/31/23 7:31:00 EDT, for pain, 03/26/23 7:31:00 EDT, Route to Pharmacy Electronically, [facility] #[id number], Partial fill upon patient r... Start Date: 03/26/23 Stop Date: 03/31/23 Status: Ordered predniSONE 20 mg oral tablet 2 tablet = 40 mg, By Mouth, Daily, for 5 days, # 10 tablet, 0 Refills, Acute 03/30/23 4:49:00 EDT, 03/25/23 4:49:00 EDT, Tablet, [facility] #[id number], Partial fill upon patient request if the prescription is for a schedule II opioid drug., 154.... Start Date: 03/25/23 Stop Date: 03/30/23 Status: Ordered ZyrTEC 10 mg oral tablet 1 tablet = 10 mg, By Mouth, Daily, PRN for allergy symptoms, you may take an additional tablet at nighttime if you continue to have itching, # 14 tablet, 0 Refills, Maintenance, 03/26/23 7:32:00 EDT,Tablet, [facility] #[id number], Partial fill u... Start Date: 03/26/23 Stop Date: 04/02/23 Status: Ordered Problem List Condition Confirmation Course Effective Dates Status Health St atus Informant Chlamydia Confirmed Active Depressive disorder Confirmed Active Kidney stones Confirmed Active Pelviectasis Confirmed Active Vital Signs Most recent to oldest [Reference Range]: 1 2 3 Height 155 cm (03/26/23 7:11 AM) 155 cm (03/26/23 6:12 AM) 155 cm (03/26/23 6:00 AM) Oxygen Saturation [94-100 %] 98 % (03/26/23 7:11 AM) 100 % (03/26/23 6:00 AM) 100 % (03/26/23 6:00 AM) Pulse Rate [55-90 bpm] 83 bpm (03/26/23 7:11 AM) 110 bpm *H* (03/26/23 6:00 AM) 122 bpm *H* (03/26/23 6:00 AM) Blood Pressure [90-138/55-84 mm Hg] 108/68mm Hg (03/26/23 7:11 AM) 127/97mm Hg (03/26/23 6:00 AM) Respiratory Rate [16-30 br/min] 18 br/min (03/26/23 7:11 AM) 20 br/min (03/26/23 6:00 AM) 18 br/min (03/26/23 6:00 AM) Temperature [96.8-100.4 DegF] 98.2 DegF (03/26/23 7:11 AM) 97.9 DegF (03/26/23 6:00 AM) Mode of Delivery (Oxygen) Room air (03/26/23 7:11 AM) Room air (03/26/23 6:00 AM) Room air (03/26/23 6:00 AM) Blood pressure sites Arm, right (03/26/23 7:11 AM) Arm, left (03/26/23 6:00 AM) Temperature Route Oral (03/26/23 7:11 AM) Oral (03/26/23 6:00 AM) Dry Weight 64 kg (03/26/23 7:11 AM) 64 kg (03/26/23 6:12 AM) 64 kg (03/26/23 6:00 AM) Dry Weight Obtained Via Patient/family s tated (03/26/23 6:00 AM) Social History Social History Type Response Smoking Status Never smoker entered on: 10/04/17 Sex Note * Moni Hayes: PERFORM Event Display: Patient Education Leaflets Authored Date: [id number] Infected Insect Bite or Sting ?? [id number] Infected Insect Bite or Sting When an insect stings you, it injects venom. When an insect bites you, it does not. Stings and bites may cause a local reaction. Or they may cause a reaction that affects your whole body. Bites and stings may become infected. Signs of infection include redness,??warmth, pain, redness streaking up the arm, drainage of pus,??and swelling. Infections will need treatment with antibiotics and should get better over the next 10 days. But they can sometimes form a pocket of pus (abscess) that needs monica opened by a healthcare provider to release the pus. Home care The following will help you care for your bite or sting at home: ??? If a stinger is still in your skin, it will need to be removed. Don't use tweezers that might push more venom into the skin. Gently scrape the stinger from the side with a firm object, such as the side of a credit card. This will loosen it and remove it from your skin. Wash the area with soap and water. ??? If itching is a problem, applying ice packs to the sting area will help. You can make your own ice pack by putting ice cubes in a bag that seals and wrapping it in a thin towel. Don???t put the ice directly on your skin because it can damage the skin. Apply the ice pack for 5 to 10 minutes. ??? Wash the area with soap and water at least 3 times a day. Apply a topical antibiotic cream or ointment. ??? You can use an over-the counter antihistamine unless your healthcare provider has given you a prescription antihistamine. You may use antihistamines to reduce itching if large areas of the skin are involved. Use lowerdoses during the daytime and higher doses at bedtime since the medicine may make you sleepy. Don't use an antihistamine if you have glaucoma or if you have trouble urinating due to an enlarged prostate. Some antihistamines cause less drowsiness and are a good choice for daytime use. ??? If oral antibiotics have been prescribed, be sure to take them as directed until they are all finished. ??? Youmay use yoal-dch-cysmijq pain medicine to control pain, unless another pain medicine was prescribed. Talk with your healthcare provider before using acetaminophen or ibuprofen if you have chronic liver or kidney disease. Also talk with your healthcare provider if you have ever had a stomach ulcer or digestive bleeding. ?? Follow-up care Follow up with your healthcare provider, or as advised if you don't get better over the next 2 daysor if your symptoms get worse. ?? Call 911 Call 911 if any of these occur: ??? Swelling of the face, eyelids, mouth, throat, or tongue ??? Trouble swallowing or breathing ??? Chest tightness ?? When to seek medical advice Call your healthcare provider right away if any of these occur: ??? Spreading areas of redness or swelling ??? Fever of 100.4??F (38??C) or higher, or as directed by your healthcare provider ??? Increasing pain, redness, swelling or drainage ??? Headache, fever, chills, muscle or joint aching, or vomiting ??? New rash ?? Last Reviewed Date: 2021 ?? 9312-1248 [employer]. All rights reserved. This information is not intended as a substitute for professional medical care. Always follow your healthcare professional's instructions. ?? Patient Care team information Care Team Personnel Name: William Irby Position: [facility] Outreach Member Role: PCP Address: Address: [address] [place] [address]- [place] Name: Omar Vargas MD Position: [facility] PRN PHYSICAL THERAPIST MD Member Role: [employer] PRN PHYSICAL THERAPIST Physician Address: Address: [address] [place] [phone]- [place] Name: Moni Hayes Position: [facility] Associate Professional Member Role: ED Physician Customer Leader Address: Address: [address] [facility] [place] [address]- [place] Name: Vanesa Quinn Position: [facility] ED TA [facility] Name: Veto Gay MD Position: [facility] ED Medicine MD Member Role: Admitting Physician Address: Address: [address] [place] [phone]- [place] Name: Chelsea Anderson RN Position: [facility] ED RN W/OE and Tasks Member Role: Patient Care Provider Care Team Related Persons Name: ISABELLA SHIPMAN Address: [employer] Address: [address] [place] [address] [place] Name: ABBY SHIPMAN Address: [address] [place] [address] Name: DEVIKA SHIPMAN Address: home [address] [place] [address] Name: GLORIA KNIGHT Address: [address] [place] [address]
--- OUTSIDE RECORDS SUMMARY | 2024-06-18 04:45 | XMS_ITS | Continuity of Care Document ---
Author Organization [facility] Address [address] [place] [address]- Care Team Providers Care Yard Truck Driver Name Role Phone Not on Staff, PCP Primary Care Physician Unavail able Encounter [facility] Date(s): 07/21/20 - 07/22/[address] [address]- Encounter Diagnosis (Final) - 07/21/20 Discharge Disposition: A-D/C Home Attending Physician: Jared Young DO Admitting Physician: Jared Young DO Referring Physician: Not on Staff, Referring MD Allergies, Adverse Reactions, Alerts Substance Reaction Severity Status amoxicillin 1 rash on back Active sulfADIAZINE hives Active sulfa drugs hives Active Latex rash Unknown Active 1rash Medications acetaminophen 500 mg oral tablet 2 tablet = 1,000 mg, By Mouth, Every 6 hours, PRN for pain, for 10 days, # 100 tablet, 0 Refills, Acute 08/01/20 0:07:00 EST, 07/22/20 0:07:00 EST, Tablet, [facility] #[id number], Partial fill upon patient request if the prescription is for a kaylyn... Start Date: 07/22/20 Stop Date: 08/01/20 Status: Ordered cefpodoxime 100 mg oral tablet 1 tablet = 100 mg, By Mouth, Every 12 hours, for 7 days, # 14 tablet, 0 Refills, Acute 07/28/20 22:23:00 EST, 07/21/20 22:23:00 EST, Tablet, [facility] #[id number], Partial fill upon patient request if the prescription is for a schedule II opioid... Start Date: 07/21/20 Stop Date: 07/28/20 Status: Ordered ibuprofen 600 mg oral tablet 600 mg, 1, tablet, By Mouth, Every 8 hours, # 30 tablet, Refills 0, Tot. Refills 0, Maintenance, 05/05/20 16:53:00 EDT, Route to Pharmacy Electronically, [facility] #[id number], 154.94, cm, 05/09/19 9:37:00 EDT, Height, 56.7, [...] 0 Refills, Maintenance, 07/22/20 0:07:00 EST, Capsule, [facility] #[id number], Partial fill upon patient request if the [...] 11/25/20 0:07:00 EDT, 07/22/20 0:07:00 EST, Tablet, [facility] #[id number], Partial fill upon patient request if the prescription is... Start Date: 07/22/20 Stop Date: 11/25/20 Status: Ordered Unisom 25 mg oral tablet 0.5 tablet = 12.5 mg, By Mouth, 3 times a day, for 15 days, # 30 tablet, 0 Refills, Acute 08/06/20 0:07:00 EST, 07/22/20 0:07:00 EST, [facility] #[id number], Partial fill upon patient request ifthe prescription is for a schedule II opioid drug.,... Start Date: 07/22/20 Stop Date: 08/06/20 Status: Ordered Vitamin D3 400 intl units oral capsule 1 capsule = 400 International_Units, By Mouth, Daily, # 30 capsule, 0 Refills, Maintenance, 03/30/19 14:50:00 EDT Start Date: 03/30/19 Status: Ordered Vital Signs Most recent to oldest [Reference Range]: 1 Height 156 cm (07/21/20 7:54 PM) Weight 58.4 kg (07/21/20 7:54 PM) Oxygen Saturation [94-100 %] 100 % (07/21/20 7:54 PM) Pulse Rate [55-90 bpm] 102 bpm *H* (07/21/20 7:54 PM) Blood Pressure [90-138/55-84 mm Hg] 115/ 67mm Hg (07/21/20 7:54 PM) Respiratory Rate [16-30 br/min] 16 br/mi n (07/21/20 7:54 PM) Temperature [96.8-100.4 DegF] 98.9 DegF (07/21/20 7:54 PM) Mode of Delivery (Oxygen) Room air (07/21/20 7:54 PM) Blood pressure sites Arm, left (07/21/20 7:54 PM) Temperature Route Oral (07/21/20 7:54 PM) Dry Weight 58.4 kg (07/21/20 7:54 PM) Weight Obtained Via Standing scale (07/21/20 7:54 PM) Dry Weight Obtained Via Standing scale (07/21/20 7:54 PM) Social History Social History Type Response Smoking Status Never smoker entered on: 10/04/17 Sex
--- OUTSIDE RECORDS SUMMARY | 2024-06-18 04:45 | XMS_ITS | Continuity of Care Document ---
Author Organization [facility] Address [address] [place] [phone]- Care Team Providers Care Gluing Crew Leader Name Role Phone Not on Staff, PCP Primary Care Physician Unavail able Encounter [facility] Date(s): 09/04/20 - 10/04/20 [facility] [address] [place] [id number] Allergies, Adverse Reactions, Alerts Substance Reaction Severity Status amoxicillin 1 rash on back Active sulfADIAZINE hives Active sulfa drugs hives Active Latex rash Unknown Active 1rash Medications ibuprofen 600 mg oral tablet 600 mg, 1, tablet, By Mouth, Every 8 hours, # 30 tablet, Refills 0, Tot. Refills 0, Maintenance, 05/05/20 16:53:00 EDT, Route to Pharmacy Electronically, [facility] #[id number], 154.94, cm, 05/09/19 9:37:00 EDT, Height, 56.7, [...] 0 Refills, Maintenance, 07/22/20 0:07:00 EST, Capsule, [facility] #[id number], Partial fill upon patient request if the [...] 11/25/20 0:07:00 EDT, 07/22/20 0:07:00 EST, Tablet, [facility] #[id number], Partial fill upon patient request if the [...]
--- OUTSIDE RECORDS SUMMARY | 2024-06-18 04:45 | XMS_ITS | Continuity of Care Document ---
Author Organization [facility] Address [address] [place] [address]- Care Team Providers Care Director Security Management Name Role Phone Sam LEDESMA, Omar Barajas Primary Care Physician Encounter [facility] [place] Date(s): 02/05/21 - 03/07/21 [facility] [address] [place] [address] Allergies, Adverse Reactions, Alerts Substance Reaction Severity Status amoxicillin 1 rash on back Active sulfADIAZINE hives Active sulfa drugs hives Active Latex rash Unknown Active 1rash Medications acetaminophen 325 mg oral capsule 2 capsule = 650 mg, By Mouth, Every 4 hours, PRN as needed for pain, # 50 capsule, 0 Refills, Maintenance, 03/05/21 6:39:00 EDT, Capsule, [facility] #[id number], Partial fill upon patient request if the prescription is for a schedule II opioid dr... Start Date: 03/05/21 Status: Ordered docusate sodium 100 mg oral tablet 1 tablet = 100 mg, By Mouth, 2 times a day, PRN for constipation, # 60 tablet, 0 Refills, Maintenance, 03/05/21 6:39:00 EDT, Tablet, [facility] #[id number], Partial fill upon patient request if the prescription is for a schedule II opioid drug.,... Start Date: 03/05/21 Status: Ordered ibuprofen 600 mg oral tablet 600 mg, 1, tablet, By Mouth, Every 8 hours, # 30 tablet, Refills 0, Tot. Refills 0, Maintenance, 05/05/20 16:53:00 EDT, Route to Pharmacy Electronically, [facility] #[id number], 154.94, cm, 05/09/19 9:37:00 EDT, Height, 56.7, kg, 05/09/19 9:37:00... Start Date: 05/05/20 Status: Ordered ibuprofen 800 mg oral tablet 800 mg, 1, tablet, By Mouth, Every 8 hours, # 50 tablet, Refills 0, Tot. Refills 0, Maintenance, 03/05/21 6:39:00 EDT, Route to Pharmacy Electronically, [facility] #[id number], Partial fill uponpatient request if the prescription is for a schedu... Start Date: 03/05/21 Status: Ordered oxyCODONE 5 mg oral tablet 5 mg, 1, tablet, By Mouth, Every 6 hours, PRN, # 7 tablet, Refills 0, Tot. Refills 0, Maintenance, as needed for pain, 03/05/21 6:40:00 EDT, Route to Pharmacy Electronically, [facility] #[id number], 156, cm, 03/05/21 1:17:00 EDT, Height, 80.7, kg... Start Date: 03/05/21 Status: Ordered Multivitamins with Vitamin B Complex, Vitamin C, Minerals and L- Methylfolate oral capsule 1 capsule, By Mouth, Daily, # 90 capsule, 0 Refills, Maintenance, 07/22/20 0:07:00 EST, Capsule, [facility] #[id number], Partial fill upon patient request if the prescription is for a schedule II opioid drug., 1 capsule By Mouth Daily,x90 days, 1... Start Date: 07/22/20 Stop Date: 10/20/20 Status: Ordered simethicone 80 mg oral tablet 1 tablet = 80 mg, By Mouth, 3 times a day after meals, PRN Gas, # 48 tablet, 0 Refills, Maintenance, 03/05/21 6:39:00 EDT, [facility] #[id number], Partial fill upon patient request if the [...] disorder(Confirmed) Active Kidney stones(Confirmed) Active Pelviectasis(Confirmed) Active Social History Social History Type Response Smoking Status Never smoker entered on: 10/04/17 Sex
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
--- OUTSIDE RECORDS SUMMARY | 2024-06-18 04:45 | XMS_ITS | Continuity of Care Document ---
Author Organization [facility] ter Address [address] [place] [address]- Care Team Providers Care Archival Records Clerk Name Role Phone Not on Staff, PCP Primary Care Physician Unavail able [facility]counter [facility] Date(s): 12/24/20 - 01/29/[address] [address] Attending Physician: Omar Vargas MD Admitting Physician: [...] 05/05/20 16:53:00 EDT, Route to Pharmacy Electronically, [facility] #[id number], 154.94, cm, 05/09/19 9:37:00 EDT, Height, 56.7, [...] 0 Refills, Maintenance, 07/22/20 0:07:00 EST, Capsule, [facility] #[id number], Partial fill upon patient request if the [...]
--- OUTSIDE RECORDS SUMMARY | 2024-06-18 04:45 | XMS_ITS | Continuity of Care Document ---
Author Organization [facility] Address [address] [place] [address]- Care Team Providers Care Marketing Information Coordinator Name Role Phone Not on Staff, PCP Primary Care Physician Unavail able Encounter [facility] Date(s): 09/17/20 - 10/17/20 [facility] [address] [place] [id number] Allergies, Adverse Reactions, Alerts Substance Reaction Severity Status amoxicillin 1 rash on back Active sulfADIAZINE hives Active sulfa drugs hives Active Latex rash Unknown Active 1rash Medications ibuprofen 600 mg oral tablet 600 mg, 1, tablet, By Mouth, Every 8 hours, # 30 tablet, Refills 0, Tot. Refills 0, Maintenance, 05/05/20 16:53:00 EDT, Route to Pharmacy Electronically, [facility] #[id number], 154.94, cm, 05/09/19 9:37:00 EDT, Height, 56.7, [...] 0 Refills, Maintenance, 07/22/20 0:07:00 EST, Capsule, [facility] #[id number], Partial fill upon patient request if the [...] 11/25/20 0:07:00 EDT, 07/22/20 0:07:00 EST, Tablet, [facility] #[id number], Partial fill upon patient request if the [...]
--- OUTSIDE RECORDS SUMMARY | 2024-06-18 04:45 | XMS_ITS | Continuity of Care Document ---
Author Organization [facility] Address [address] [place] [address]- Care Team Providers Care Signal Integrity Engineer Name Role Phone William Irby Primary Care Physician Encounter [facility] Date(s): 07/21/23 - 07/21/[address] [address]- Discharge Disposition: A-D/C Walkout Attending Physician: Not on Staff, Attending MD Admitting Physician: Not on Staff, Admitting MD Referring Physician: Not on Staff, Referring MD Allergies, Adverse Reactions, Alerts Substance Reaction Severity Status amoxicillin 1, 2 Tolerated ceftriaxon e and cefazolin 2017 rash on back Active sulfADIAZINE hives Active sulfa drugs hives Active Latex rash Unknown Active 1Tolerated ceftriaxon and cefazolin 2018 2rash Medications ZyrTEC 10 mg oral tablet 1 tablet = 10 mg, By Mouth, Daily, PRN for allergy symptoms, you may take an additional tablet at nighttime if you continue to have itching, # 14 tablet, 0 Refills, Maintenance, 03/26/23 7:32:00 EDT,Tablet, [id number], Partial fill u... Start Date: 03/26/23 Stop Date: 04/02/23 Status: Ordered Problem List Condition Confirmation Course Effective Dates Status Health [facility] Informant Chlamydia Confirmed Active Depressive disorder Confirmed Active Kidney stones Confirmed Active Pelviectasis Confirmed Active Results Radiology Reports * Exam Date Time Procedure Performing Provider Status 07/21/23 8:31 AM Chest 2 Views Frontal and Lat Rian Linares (Verified) Notes: (Chest 2 Views Frontal and Lat) Reason For Exam: Fever;Cough RESULT: Chest 2 Views Frontal and Lat Chest 2 Views Frontal and Lat Hx of Present Illness: dry cough and chest tightness when laying down since 12 25. no fevers.; Reason: Cough; Fever; Clinical Question(s): Pneumonia; Special Instructions: This is a protocol film andradiologist should call any findings to the Charge Nurse COMPARISON: 03/30/2019 FINDINGS: No acute cardiopulmonary process IMPRESSION: No acute abnormality. Normal exam WSN: [id number] Ordering Physician: Rodolfo Ramachandran Dictated By: George Mascorro MD Dictated Date/Time: 07/21/23 8:35 am Reviewed By: George Mascorro MD Signed By: George Mascorro MD Signed Date/Time: 07/21/23 8:35 am Transcribed By: DWAIN Transcribed Date/Time: 07/21/23 8:34 am Vital Signs Most recent to oldest [Reference Range]: 1 Height 155 cm (07/21/23 8:12 AM) Weight 64 kg (07/21/23 8:12 AM) Oxygen Saturation [94-100 %] 99 % (07/21/23 8:12 AM) Pulse Rate [55-90 bpm] 83 bpm (07/21/23 8:12 AM) Blood Pressure [90-138/55-84 mm Hg] 115/ 70mm Hg (07/21/23 8:12 AM) Respiratory Rate [16-30 br/min] 18 br/mi n (07/21/23 8:12 AM) Temperature [96.8-100.4 DegF] 98.7 DegF (07/21/23 8:12 AM) Mode of Delivery (Oxygen) Room air (07/21/23 8:12 AM) Temperature Route Temporal (07/21/23 8:12 AM) Dry Weight 64 kg (07/21/23 8:12 AM) Social History Social History Type Response Smoking Status Never smoker entered on: 10/04/17 Sex Patient Care team information Care Team Personnel Name: William Irby Position: [facility] Outreach Member Role: PCP Address: Address: [address] [place] [id number]- Name: Omar Vargas MD Position: [facility] INTERACTIVE MEDIA MARKETING STRATEGIST MD Member Role: [employer] INTERACTIVE MEDIA MARKETING STRATEGIST Physician Address: Address: [address] [place] [id number]- Name: Layla Hopson Position: [facility] Associate Professional Member Role: ED Physician Exercise Physiologist Address: Address: [address] [place] [address] [place] [address]- Name: Nate Boyce DO Position: [facility] ED Medicine MD Address: Address: [address] [place] [address] [place] [address]- Name: Archie Clancy Position: [facility] ED TA [facility] Member Role: Patient Care Provider Name: Nathaly Frausto RN Position: [facility] ED RN W/OE and Tasks Member Role: Patient Care Provider Care Team Related Persons Name: ISABELLA SHIPMAN Address: [facility] Address: home [address] Name: ABBY SHIPMAN Address: [address] [place] [address] Name: DEVIKA SHIPMAN Address: home [address] [place] [id number] Name: GLORIA KNIGHT Address: home [address] [place] [address]
[2024-06-18 04:56] VITALS: BP 116/62; PULSE 82; RESP 16; TEMP 36.9; O2SAT 98
== END 2024-06-18 04:59 | disposition home or self-care (01) ==
PROVIDERS: Emergency Provider Emergency Medicine
DX: R11.2 Nausea with vomiting, unspecified (principal); R10.9 Unspecified abdominal pain; R53.1 Weakness; R19.7 Diarrhea, unspecified; Z79.899 Other long term (current) drug therapy
CPT/HCPCS: 36415; 80053; 81001; 81025; 83690; 85025; 87086; 96361; 96374; 96375; 99284; J1885; J2405; J7120

== ENCOUNTER 2024-06-21 09:51 | Emergency (ER) | payer MEDICAID, SELFPAY ==
--- NOTE | ~2024-06-21 | US_ITS ---
EXAMINATION: US ABDOMEN LIMITED CLINICAL INFORMATION: Right upper quadrant pain.. COMPARISON: None available. TECHNIQUE: Real-time imaging of the right upper quadrant abdominal viscera. FINDINGS: PANCREAS: Head and body appear unremarkable. Tail not visualized. LIVER: The liver is normal in size. The liver contour is normal. Parenchymal echogenicity is normal. No focal hepatic lesion. There is no intrahepatic biliary duct dilatation seen. GALLBLADDER: The gallbladder is physiologically distended without evidence of stones, sludge, polyps, wall thickening or pericholecystic fluid. Technologist reports a negative sonographic Nino's sign. COMMON BILE DUCT: Normal in caliber measuring 0.4 cm in diameter. RIGHT KIDNEY: The technologist gaspar a 0.4 cm, echogenic structure in the lower pole left kidney which does not clearly demonstrate shadowing. No hydronephrosis. No renal or focal parenchymal lesion identified. The kidney measures 10.0 cm in maximum dimension. FREE FLUID: None. US/US abdomen limited IMPRESSION: The technologist gaspar a 0.4 cm, echogenic structure in the lower pole left kidney which does not clearly demonstrate shadowing. It is uncertain whether this represents normal echogenic renal sinus fat versus nonshadowing echoes consistent stone. No hydronephrosis. Otherwise unremarkable right upper quadrant ultrasound examination. Electronically signed by: Isma Melchor MD 06/21/2024 02:52 PM [facility]
--- NOTE | ~2024-06-21 | CT_ITS ---
EXAMINATION: CT ABDOMEN AND PELVIS WITH CONTRAST CLINICAL INFORMATION: Left-sided pain and tenderness, question colitis COMPARISON: Abdominal ultrasound on the same day TECHNIQUE: Multidetector volumetric images were obtained from the superior aspect of the liver through the pubic symphysis following administration 85 mL of Omnipaque 350 intravenous contrast. Sagittal and coronal reformatted images were obtained on the technologist's workstation. Oral contrast: No This CT examination was performed using dose optimization techniques as appropriate, variously including the following: *Automated exposure control *Adjustment of mA and/or kV according to patient size (this includes techniques or standardized protocols for targeted exams where dose is matched to indication/reason for exam; i.e. extremities or head) *Use of iterative reconstruction technique DLP: 374 mGy-cm FINDINGS: LUNG BASES: The visualized lung bases are unremarkable. LIVER, GALLBLADDER, AND BILIARY TREE: The liver is normal in size, shape, and attenuation. No focal hepatic lesion or biliary ductal dilatation is present. The gallbladder is unremarkable with no evidence of radiopaque gallstones, gallbladder wall thickening, or obvious pericholecystic inflammatory changes. PANCREAS: Unremarkable. SPLEEN: Unremarkable. ADRENAL GLANDS: Unremarkable. KIDNEYS AND URETERS: The kidneys are normal in size, shape, and attenuation. No hydronephrosis. 3 mm nonobstructing calculus in the upper pole of the left kidney. Subcentimeter cyst in the midpole of the right kidney. BLADDER: Bladder is decompressed. GASTROINTESTINAL TRACT: Stomach is unremarkable. There is no bowel obstruction. No inflammatory changes in the bowel. ABDOMINAL WALL: No significant hernia is appreciated. LYMPH NODES: Normal. VASCULAR: Unremarkable. PELVIC VISCERA: Presumed physiologic cyst in the right ovary. OSSEOUS STRUCTURES: Unremarkable. CT/CT abdomen pelvis w IV con IMPRESSION: 1. No acute abnormality in the abdomen or pelvis. 2. 3 mm nonobstructing calculus in the upper pole of the left kidney. Fleischner guidelines were followed. Electronically signed by: Kenny Jimenez MD 06/21/2024 08:37 PM EST
[2024-06-21 10:01] VITALS: BP 122/73; PULSE 94; RESP 16; TEMP 36.4; O2SAT 100; BMI 25.9
[2024-06-21 11:38] LABS: MANUAL DIFF FLAG NO
[2024-06-21 11:39] LABS: Basophils Percent Auto 0.5 % (0-2); Eosinophils Absolute Auto 0.1 X10*3/uL (0.0-0.4); Eosinophils Percent Auto 2.2 % (0-4); Hematocrit 35.9 % (37.0-47.0); Lymphocytes Absolute Auto 1.8 X10*3/uL (1.2-4.9); Lymphocytes Percent Auto 43.9 % (20-40); Mean Corpuscular HGB Conc 33.4 g/dl (31.0-35.0); Mean Corpuscular Hemoglobin 28.1 pg (27.0-33.0); Mean Corpuscular Volume 84.1 fL (80.0-98.0); Mean Platelet Volume 9.4 fL (9.4-12.3); Monocytes Absolute Auto 0.4 X10*3/uL (0.1-1.2); Monocytes Percent Auto 10.2 % (2-11); Neutrophils Absolute Auto 1.8 x10*3/uL (2.0-8.3); Neutrophils Percent Auto 43.2 % (45-73); Platelet Count 283 X10*3/uL (160-400); Red Blood Count 4.27 X10*6/uL (4.20-5.50); White Blood Count 4.1 X10*3/uL (4.8-10.8)
[2024-06-21 12:03] LABS: Alanine Aminotransferase 39 U/L (0-31); Alkaline Phosphatase 81 U/L (39-117); Anion Gap 10 (12-20); Aspartate Amino Transferase 33 U/L (5-31); Bilirubin Direct < 0.2 mg/dL (0.0-0.5); Bilirubin Total 0.2 mg/dL (0.0-1.0); Blood Urea Nitrogen 9 mg/dL (9-16); Calcium 8.7 mg/dL (8.4-10.2); Carbon Dioxide 26 mmol/L (22-29); Chloride 108 mmol/L (96-108); Creatinine Clr Calc Pharmacy 95.2; Estimated Glomerular Filt Rate > 60; Glucose Random 84 mg/dL (60-115); Lipase 20 U/L (8-78); Potassium 3.6 mmol/L (3.3-5.1); Sodium 140 mmol/L (135-145); Total Protein 6.9 g/dL (6.5-8.0)
[2024-06-21 12:18] LABS: Influenza A PCR NEGATIVE (Negative); Influenza B PCR NEGATIVE (Negative); Resp Syncy Virus RNA Qual PCR NEGATIVE (Negative); SARS COV2 PCR INHOUSE NEGATIVE (Negative)
--- NOTE | 2024-06-21 16:55 | ED_ITS ---
HPI - General Adult General Chief complaint: Abdominal Pain Stated complaint: Stomach Issues Time Seen by Provider: 06/21/24 16:55 History of Present Illness ED Provider: Ashley TELLEZ narrative: The patient is a 29-year-old who says that she has been feeling unwell with gastrointestinal symptoms for about 6 days. She says last Monday she ate a burrito from a local burrito restaurant. Subsequently she developed vomiting and diarrhea and abdominal pain. She was treated symptomatically and discharged with instructions for a viral gastroenteritis and prescribed ondansetron. She says that despite ondansetron she continues to have abdominal pain, vomiting, and diarrhea. She says that she tried to yesterday on [employer] who was only able to eat a very little bit. Today she could not eat anything and had more vomiting and diarrhea. She also has pain that is on the left side of her abdomen. She has had kidney stones in the past. She says this does not feel like kidney stone pain. She says it feels as though something is going to explode in her abdomen. The patient states they have lost 7 lb in the last week. The patient also says that her watch tells her that she frequently has episodes of a very fast heart rate. The patient is here with her boyfriend. They report that a few weeks ago at the last time they had intercourse that the patient had pain following intercourse that has been somewhat persistent on the left side of her abdomen. They hypothesis whether intercourse might have ruptured an ovarian cyst if she had one. She also reports having seen some blood in her urine. Her highest temperature measured over the last few days at home was 99.7. She reports that she has had problems with eating ever since her last . Otherwise she does not feel that she has any chronic abdominal issues. No history of any abdominal surgeries. Related Data Previous Rx's ?Medication ?Instructions ?Recorded ondansetron 4 mg disintegrating 4 mg PO Q8H PRN nausea and 06/18/24 tablet vomiting #20 tabs promethazine 25 mg rectal 25 mg DE Q6H PRN nausea and 06/21/24 suppository vomiting #12 ea Allergies Allergy/AdvReac Type Severity Reaction Status Date / Time amoxicillin Allergy Rash Verified 06/21/24 10:02 Sulfa (Sulfonamide Allergy Rash Verified 06/21/24 10:02 Antibiotics) Review of Systems 2 Review of Systems: Yes all other systems are reviewed and are negative [facility] Past Medical History Medical History (Updated 06/22/24 @ 00:01 by Sisi Meng) No pertinent past medical history Social History Social History (Updated 06/18/24 @ 03:12 by Keli Matt DO) Patient Tobacco Use Status: Never used Tobacco Smoked in Last 30 Days: No Use of substances other than those prescribed or required for medical reasons: Yes Substance Use Type: Marijuana Advance Directives: No Advance Directives Information Provided: Yes Do you have a plan to hurt others: No Plan Physical Exam ED Vital Signs: Vital Signs - 24 hr 06/21/24 10:01 06/21/24 17:19 06/21/24 21:17 Temperature 97.6 F 98.4 F 98.2 F Pulse Rate 94 75 81 Respiratory Rate 16 74 H 16 Blood Pressure 122/73 117/74 97/51 L Pulse Oximetry 100 100 99 Oxygen Delivery Method Room Air Room Air Room Air BMI result Body Mass Index 25.9 Const Other: The patient is awake and alert with a normal mental status. She looks as if she is an ordinarily healthy 29-year-old. She looks mildly worn out but not acutely toxic. HENMT Other: Face is symmetrical. Mucous membranes moist. Eyes Other: Pupils are round equal, conjunctivae are clear Neck Other: Supple Resp Effort & Inspection: normal respiratory effort Auscultation: clear to auscultation bilaterally Cardio Rate: regular rate Rhythm: regular rhythm Heart sounds: S1 normal heart sound present and S2 normal heart sound present GI Other: The abdomen is flat and soft. There was no right-sided tenderness. Particularly no right lower quadrant tenderness. There was some left-sided tenderness at the level of the umbilicus. N Back/Spine/Pelvis Other: No CVA percussion tenderness Skin Other: Skin is pale and dry Neuro Other: The patient is awake and alert with a normal mental status. Moves extremities normally. Extrem Other: No peripheral edema Medications Administered Discontinued Medications Generic Name Dose Route Start Last Admin Trade Name Freq PRN Reason Stop Dose Admin Sodium Chloride 1,000 mls @ 999 mls/hr 06/21/24 17:15 06/21/24 19:03 Ns IV 06/21/24 18:15 Infused .Q1H1M ESAU Infusion Sodium Chloride 1,000 mls @ 999 mls/hr 06/21/24 19:30 06/21/24 21:09 Ns IV 06/21/24 20:30 Infused .Q1H1M ESAU Infusion Acetaminophen 1,000 mg in 100 mls @ 400 mls/hr 06/21/24 19:30 06/21/24 20:20 Ofirmev IV 06/21/24 19:44 Infused ONCE ONE Infusion Iohexol 100 ml 06/21/24 19:17 06/21/24 19:17 Iohexol 350 Mg/Ml 100 Ml Infus..Btl IV 06/21/24 19:18 85 ml ONCE ONE Administration Ketorolac Tromethamine 10 mg 06/21/24 17:05 06/21/24 17:29 Ketorolac Tromethamine 15 Mg/Ml Vial IVPUSH 06/21/24 17:06 10 mg ONCE ONE Administration Loperamide HCl 4 mg 06/21/24 21:02 06/21/24 21:10 Loperamide Hcl 2 Mg Capsule PO 06/21/24 21:03 4 mg ONCE ONE Administration Ondansetron HCl 4 mg 06/21/24 17:05 06/21/24 17:29 Ondansetron Hcl 4 Mg/2 Ml Vial IVPUSH 06/21/24 17:06 4 mg ONCE ONE Administration Medical Decision Making Medical Decision Making [facility] Narrative: The patient is a 29-year-old female who has been having problems with nausea, vomiting, and diarrhea for about a week. She has left-sided abdominal pain. She was seen in the emergency room 3 days ago with similar symptoms. She feels that she is not getting better. She had an additional workup here that was largely unremarkable including a negative CT of the abdomen. She was treated symptomatically and discharged. A prescription for prochlorperazine was sent to the pharmacy. She should follow up with her PCP at the [facility]. Lab Data 06/21/24 11:30 06/21/24 11:30 Labs: Lab Results 06/21/24 06/21/24 06/21/24 Range/Units 11:30 19:39 19:40 WBC 4.1 L (4.8-10.8) X10*3/uL RBC 4.27 (4.20-5.50) X10*6/uL Hgb 12.0 (12.0-16.0) g/dl Hct 35.9 L (37.0-47.0) % MCV 84.1 (80.0-98.0) fL MCH 28.1 (27.0-33.0) pg MCHC 33.4 (31.0-35.0) g/dl RDW 13.0 (11.0-16.0) % Plt Count 283 (160-400) X10*3/uL MPV 9.4 (9.4-12.3) fL Immature Gran % (Auto) 0.0 (0.0-0.4) % Neut % (Auto) 43.2 L (45-73) % Lymph % (Auto) 43.9 H (20-40) % Reeves % (Auto) 10.2 (2-11) % Eos % (Auto) 2.2 (0-4) % Baso % (Auto) 0.5 (0-2) % Lymph # (Auto) 1.8 (1.2-4.9) X10*3/uL Reeves # (Auto) 0.4 (0.1-1.2) X10*3/uL Eos # (Auto) 0.1 (0.0-0.4) X10*3/uL Baso # (Auto) 0.0 (0.0-0.2) X10*3/uL Abs Immat Gran (auto) 0.00 (0.00-0.03) X10*3/uL Absolute Neuts (auto) 1.8 L (2.0-8.3) x10*3/uL Absolute Nucleated RBC 0.000 (0.0-0.012) X10*3/uL Nucleated RBC % (auto) 0.0 (0.0-0.2) /100WBC Sodium 140 (135-145) mmol/L Potassium 3.6 (3.3-5.1) mmol/L Chloride 108 (96-108) mmol/L Carbon Dioxide 26 (22-29) mmol/L Anion Gap 10 L (12-20) BUN 9 (9-16) mg/dL Creatinine 0.75 (0.5-1.4) mg/dL Estim Creat Clear Calc 95.2 Estimated GFR > 60 Random Glucose 84 (60-115) mg/dL Calcium 8.7 D (8.4-10.2) mg/dL Magnesium 2.0 (1.6-2.6) mg/dL Total Bilirubin 0.2 (0.0-1.0) mg/dL Direct Bilirubin < 0.2 (0.0-0.5) mg/dL AST 33 H (5-31) U/L ALT 39 H (0-31) U/L Alkaline Phosphatase 81 (39-117) U/L C-Reactive Protein 0.53 H (< or = 0.50) mg/dL Total Protein 6.9 (6.5-8.0) g/dL Albumin 4.0 (3.5-5.0) g/dL Lipase 20 (8-78) U/L Beta HCG, Quant < 2 mIU/mL Urine Color Dark Yellow Urine Appearance Cloudy Urine pH 5.5 (5.0-9.0) Ur Specific [place] >= 1.030 H (1.005-1.025) Urine Protein Trace (Neg-Trace) mg/dL Urine Glucose (UA) Negative (Negative) mg/dL Urine Ketones Trace (Negative) mg/dL Urine Blood Negative (Negative) Urine Nitrite Negative (Negative) Ur Leukocyte Esterase Trace H (Negative) Urine RBC 0-2 (0-2) /HPF Urine WBC 6-10 H (0-5) /HPF Ur Squamous Epith Cells >20 (0-2) /HPF Urine Bacteria 4+ (None Seen) Hyaline Casts 3-5 (0-2) /LPF Urine Test NEGATIVE (NEGATIVE) Influenza Type A (PCR) NEGATIVE (Negative) Influenza Type B (PCR) NEGATIVE (Negative) RSV RNA Qual (PCR) NEGATIVE (Negative) SARS-CoV-2 RNA (RT-PCR) NEGATIVE (Negative) Discharge Plan Discharge Clinical Impression: Abdominal pain, vomiting, and diarrhea Patient Disposition: Home, Self-Care Additional Instructions: Your testing in the emergency room today is very reassuring from the point of view of any significantly dangerous process. Your CT scan showed a 3 mm kidney stone in your left kidney but at the moment that kidney stone is not causing any problems. My hope is that your symptoms will start to resolve over the next couple of days. For nausea you may continue to use the ondansetron (Zofran) that was prescribed on your 1st visit. I have also sent a prescription for suppositories of a medication called promethazine that you may use for nausea as well. Do your best to take fluids. If you have ongoing diarrhea you may try [id number] loperamide (brand name is Imodium). Please follow up with your regular doctor's office next week if not feeling significantly better. Return to the emergency room if worse. Prescriptions: New promethazine 25 mg suppository 25 mg DE Q6H PRN (Reason: nausea and vomiting) Qty: 12 0RF No Action ondansetron 4 mg tablet,disintegrating 4 mg PO Q8H PRN (Reason: nausea and vomiting) Qty: 20 0RF Referrals: [facility] [Provider Group] (Abdominal pain, vomiting, diarrhea) Stand Alone Forms: Work/School Release Interventions: ED Discharge Assessment Last Done: 06/21/24 21:17 Discharge Date/Time: 06/21/24 21:18 Print Language: Bulgarian
[2024-06-21 17:14] LABS: C Reactive Protein 0.53 mg/dL (< or = 0.50)
[2024-06-21 17:19] VITALS: BP 117/74; PULSE 75; RESP 74; TEMP 36.9; O2SAT 100
[2024-06-21] MEDS: 0.9 % Sodium Chloride 1,000 ML 999 ML IV ×2 (17:29→19:48)
[2024-06-21] MEDS: ondansetron HCL 4 MG/2 ML VIAL IVPUSH (17:29)
[2024-06-21] MEDS: Ketorolac Tromethamine 15 MG/ML VIAL 10 MG IVPUSH (17:29)
[2024-06-21] MEDS: iohexoL 350 MG/ML 100 ML INFUS..BTL IV (19:17)
[2024-06-21] MEDS: Acetaminophen 1,000 MG/100 ML PIGGYBACK 400 MG IV (19:49)
[2024-06-21 20:13] LABS: Appearance Urine Cloudy; Color Urine Dark Yellow; Glucose Urine UA Negative (Negative); Leukocyte Esterase Urine Trace (Negative); Nitrite Urine Negative (Negative); PH 5.5 (5.0-9.0); Specific Gravity - Urine >= 1.030 (1.005-1.025); UMIC TRIGGER UACC YES; Urine Blood Negative (Negative); Urine Ketones Trace mg/dL (Negative); Urine Protein Trace mg/dL (Neg-Trace)
[2024-06-21 20:14] LABS: HCG Quantitative < 2 mIU/mL
[2024-06-21 20:23] LABS: UPreg QC Valid YES; Urine Pregnancy NEGATIVE (NEGATIVE)
[2024-06-21 20:35] LABS: Bacteria Urine 4+ (None Seen); RBC Urine 0-2 /HPF (0-2); Squamous Epithelial Cell Urine >20 /HPF (0-2); UACC Culture Trigger YES
[2024-06-21] MEDS: Loperamide HCl 2 MG CAPSULE 4 MG PO (21:10)
[2024-06-21 21:17] VITALS: BP 97/51; PULSE 81; RESP 16; TEMP 36.8; O2SAT 99
== END 2024-06-21 21:18 | disposition home or self-care (01) ==
PROVIDERS: Physician Assistant Medical; Emergency Provider Emergency Medicine
DX: R10.2 Pelvic and perineal pain (principal); R11.2 Nausea with vomiting, unspecified; R19.7 Diarrhea, unspecified; Z03.818 Encounter for observation for suspected exposure to other biological agents ruled out; Z79.899 Other long term (current) drug therapy
CPT/HCPCS: 0241U; 74177; 76705; 80048; 80076; 81001; 81003; 81025; 83690; 83735; 84702; 85025; 86140; 87086; 96361; 96374; 96375; 99284; J0131; J1885; J2405; Q9967